=== PATIENT | female | born 1965 | race Caucasian/White ===

== ENCOUNTER 2018-05-27 10:30 | Inpatient (IN) | payer OTHER ==
[~2018-05-27] VITALS: Ht 160 cm; Wt 67.1 kg
[2018-05-27] MEDS ORDERED: SYNTHROID50 MCG PO (13:07)
[2018-06-02] MEDS ORDERED: NAPROXEN SODIU550 M1 PO (07:22)
[2018-06-02] MEDS ORDERED: TYLENOL-CODEINE1 TA1 PO (07:31)
== END 2018-06-02 12:46 | disposition home or self-care (01) | DRG 747 ==
LOC: SURH 06-01 06:25 → O/R 06-01 06:25 → SURH 06-01 09:00 → OB/GYN 06-01 10:24 → SURH 06-01 10:30
PROVIDERS: Obstetrics & Gynecology Gynecology
PROC: 0JQC0ZZ Repair Pelvic Region Subcutaneous Tissue and Fascia, Open Approach (ICD-10-PCS; 2018-06-01)
PROC: 0UQF0ZZ Repair Cul-de-sac, Open Approach (ICD-10-PCS; principal; 2018-06-01 09:00)
DX: N81.5 Vaginal enterocele (principal); N81.11 Cystocele, midline; N81.6 Rectocele

== ENCOUNTER 2018-12-10 14:45 | Inpatient (IN) | payer OTHER ==
[~2018-12-10] VITALS: Ht 162.6 cm; Wt 67.6 kg
[~2018-12-10 14:45] MED LIST: NAPROXEN SODIU550 M1 PO; SYNTHROID50 MCG PO; TYLENOL-CODEINE1 TA1 PO
[2018-12-10] MEDS ORDERED: DIETHYLPROPION75 MG PO (16:25)
[2018-12-10] MEDS ORDERED: SYNTHROID50 MCG PO (16:37)
[2018-12-15] MEDS ORDERED: SURFAK240 M1 PO (09:07)
[2018-12-15] MEDS ORDERED: ULTRACET PO (09:07)
== END 2018-12-15 10:10 | DRG 747 ==
LOC: O/R 12-14 07:11 → SURG 12-14 13:15 → OB/GYN 12-14 13:30 → SURG 12-14 14:45 → OB/GYN 12-14 21:05
PROVIDERS: ADMIT Obstetrics & Gynecology Gynecology
PROC: 0USG0ZZ Reposition Vagina, Open Approach (ICD-10-PCS; 2018-12-14)
PROC: 0JQC0ZZ Repair Pelvic Region Subcutaneous Tissue and Fascia, Open Approach (ICD-10-PCS; 2018-12-14)
PROC: 0UQF0ZZ Repair Cul-de-sac, Open Approach (ICD-10-PCS; principal; 2018-12-14 13:15)
DX: N81.6 Rectocele (principal); N81.5 Vaginal enterocele; N81.12 Cystocele, lateral; E03.8 Other specified hypothyroidism